=== PATIENT | male | born 1970 | race Hispanic/Latino ===

== ENCOUNTER 2017-06-20 16:37 | Emergency (ER) | payer SELFPAY ==
[~2017-06-20] VITALS: Ht 162.6 cm; Wt 68.0 kg
[~2017-06-20 16:37] MED LIST: CIPRO500 MG OR; CIPROFLOXACN500 MG PO; LORTAB 10 OR; LORTAB 1010 MG PO; LORTAB 5 OR; LORTAB 5/3255 MG PO; LORTAB5 OR; LORTAB5 PO; METFORMIN500 MG PO; NO HOME MEDS; ULTRAM50 M1 PO; ZOFRAN ODT4 MG PO
[2017-06-20] MEDS ORDERED: METFORMIN500 M2 PO (16:49)
[2017-06-20] MEDS ORDERED: MOTRIN400 MG PO (18:58)
[2017-06-20 19:10] VITALS: BP 129/74
== END 2017-06-20 19:10 | disposition home or self-care (01) | DRG 556 ==
LOC: ED 16:37
PROC: 2W39X1Z Immobilization of Left Upper Extremity using Splint (ICD-10-PCS; principal; 2017-06-20)
DX: M25.522 Pain in left elbow (principal); E11.9 Type 2 diabetes mellitus without complications; I10 Essential (primary) hypertension; W11.XXXA Fall on and from ladder, initial encounter; Y92.009 Unspecified place in unspecified non-institutional (private) residence as the place of occurrence of the external cause

== ENCOUNTER 2018-10-04 13:43 | Emergency (ER) | payer OTHER ==
[~2018-10-04] VITALS: Ht 162.6 cm; Wt 90.0 kg
[~2018-10-04 13:43] MED LIST changes: +METFORMIN500 M2 PO; +MOTRIN400 MG PO
[2018-10-04] MEDS ORDERED: GENTAMICIN0.3 % OS (14:26)
[2018-10-04 14:40] VITALS: BP 112/64
== END 2018-10-04 14:40 | disposition home or self-care (01) | DRG 125 ==
LOC: ED 13:43
DX: S05.12XA Contusion of eyeball and orbital tissues, left eye, initial encounter (principal); E11.9 Type 2 diabetes mellitus without complications; X58.XXXA Exposure to other specified factors, initial encounter; Y93.89 Activity, other specified; Y92.73 Farm field as the place of occurrence of the external cause; Y99.0 Civilian activity done for income or pay

== ENCOUNTER 2019-06-18 19:13 | Emergency (ER) | payer SELFPAY ==
[~2019-06-18] VITALS: Ht 152.4 cm; Wt 72.0 kg
[~2019-06-18 19:13] MED LIST changes: +GENTAMICIN0.3 % OS
[2019-06-18] MEDS ORDERED: INSULIN 70/30 (19:37)
[2019-06-18] MEDS ORDERED: CODEINE/GUAIFEN1 SOL PO (22:43)
[2019-06-18 23:00] VITALS: BP 118/68
== END 2019-06-18 23:00 | disposition home or self-care (01) | DRG 153 ==
LOC: ED 19:13
DX: J06.9 Acute upper respiratory infection, unspecified (principal)

== ENCOUNTER 2019-11-28 | Emergency (ER) | payer SELFPAY ==
[~2019-11-28] MED LIST changes: +CODEINE/GUAIFEN1 SOL PO; +INSULIN 70/30
[2019-11-28 16:59] LABS: URINE BILIRUBIN - DIPSTICK NEGATIVE (NEGATIVE); URINE BLOOD DIPSTICK NEGATIVE (NEGATIVE); URINE COLOR YELLOW; URINE GLUCOSE - DIPSTICK >=1000 mg/dL (NEGATIVE); URINE KETONE NEGATIVE (NEGATIVE); URINE LEUK ESTERASE NEGATIVE (NEGATIVE); URINE NITRITE - DIPSTICK NEGATIVE (Negative); URINE PROTEIN - DIPSTICK NEGATIVE (NEG-TRACE); URINE UROBILINOGEN - DIPSTICK 0.2 E.U./dL (0.2)
[2019-11-28 17:31] LABS: HEMATOCRIT 39.7 % (39.0-50.0); HEMOGLOBIN 13.8 g/dl (14.0-18.0); IMMATURE GRANULOCYTES 0.2 % (0.0-5.0); MEAN CELL VOLUME 91.1 fL CALC (80.0-100.0); MEAN CORPUSCULAR HGB 31.7 pG CALC (26.0-32.0); MEAN CORPUSCULAR HGB CONC 34.8 g/dL CAL (32.0-36.0); NEUT# 3.54 thou/uL (1.82-7.42); RED BLOOD COUNT 4.36 mill/uL (4.70-6.10); RED CELL DISTRI WIDTH 12.4 % (11.5-15.5)
[2019-11-28 17:49] LABS: ALBUMIN 3.9 g/dL (3.2-5.0); ALKALINE PHOSPHATASE 165 u/l (38-126); ANION GAP 13 (6-22 (CALC)); BILIRUBIN, TOTAL 0.4 mg/dL (0.0-1.4); BUN 14 mg/dL (9-20); BUN/CREATININE RATIO 27 (12-20 (CALC)); CARBON DIOXIDE 22 mmol/l (22-30); CHLORIDE 101 mmol/l (95-108); CREATININE 0.5 mg/dL (0.7-1.3); GFR > 60 ML/MIN (>=60 (CALC)); GFR FOR AFR.AMER. > 60 ML/MIN (>=60 (CALC)); SGOT/AST 27 u/l (17-59); TOTAL PROTEIN 6.7 g/dL (6.3-8.2)
[2019-11-28 17:54] LABS: SODIUM 132 mmol/l (137-146)
[2019-11-28] MEDS ORDERED: BACTRIM DS1 TAB PO (19:50)
== END 2019-11-28 20:15 | disposition home or self-care (01) | DRG 728 ==
DX: N45.1 Epididymitis (principal); E11.9 Type 2 diabetes mellitus without complications; Z79.4 Long term (current) use of insulin
CPT/HCPCS: Q9967

== ENCOUNTER 2022-08-17 06:09 | Emergency (ER) | payer SELFPAY ==
[~2022-08-17] VITALS: Ht 152.4 cm; Wt 73.0 kg
[2022-08-17] VITALS (17 sets, daily range): BP systolic 119–152; BP diastolic 68–97
[~2022-08-17 06:09] MED LIST changes: +BACTRIM DS1 TAB PO
[2022-08-17 06:32] LABS: BASO% 0.1 % (0-3); EOS% 2.1 % (0-8); HEMATOCRIT 45.8 % (39.0-50.0); HEMOGLOBIN 15.5 g/dl (14.0-18.0); IMMATURE GRANULOCYTES 0.1 % (0.0-5.0); LYMPH% 42.5 % (15-41); MEAN CELL VOLUME 93.3 fL CALC (80.0-100.0); MEAN CORPUSCULAR HGB 31.6 pG CALC (26.0-32.0); MEAN CORPUSCULAR HGB CONC 33.8 g/dL CAL (32.0-36.0); MONO% 9.8 % (2-13); NEUT# 3.46 thou/uL (1.82-7.42); NEUT% 45.4 % (42-76); RED BLOOD COUNT 4.91 mill/uL (4.70-6.10); RED CELL DISTRI WIDTH 12.1 % (11.5-15.5)
[2022-08-17 06:50] LABS: ALKALINE PHOSPHATASE 179 u/l (38-126); BILIRUBIN, TOTAL 0.4 mg/dL (0.0-1.4); BUN 16 mg/dL (9-20); BUN/CREATININE RATIO 22 (12-20 (CALC)); CHLORIDE 98 mmol/l (95-108); CREATININE 0.7 mg/dL (0.7-1.3); GFR FOR AFR.AMER. > 60 ML/MIN (>=60 (CALC)); GFR OTHER RACES > 60 ML/MIN (>=60 (CALC)); POTASSIUM 3.4 mmol/l (3.5-5.1); SGOT/AST 36 u/l (17-59); SODIUM 136 mmol/l (137-146)
[2022-08-17 06:51] LABS: ALBUMIN 4.8 g/dL (3.2-5.0); ANION GAP 13 (6-22 (CALC)); CARBON DIOXIDE 28 mmol/l (22-30)
[2022-08-17 06:57] LABS: ACT PARTIAL THROMBO TIME 24.8 SECONDS (20.0-32.5); PROTHROMBIN TIME 9.5 SECONDS (9.0-12.5)
[2022-08-17 07:00] LABS: D-DIMER 0.24 mg/L (0.19-0.60)
[2022-08-17 07:23] LABS: URINE BILIRUBIN - DIPSTICK NEGATIVE (NEGATIVE); URINE BLOOD DIPSTICK NEGATIVE (NEGATIVE); URINE COLOR YELLOW; URINE GLUCOSE - DIPSTICK 250 mg/dL (NEGATIVE); URINE KETONE NEGATIVE (NEGATIVE); URINE LEUK ESTERASE NEGATIVE (NEGATIVE); URINE PH 5.5 (4.5-8.0); URINE PROTEIN - DIPSTICK NEGATIVE (NEG-TRACE); URINE UROBILINOGEN - DIPSTICK 0.2 E.U./dL (0.2)
[2022-08-17 07:24] LABS: URINE NITRITE - DIPSTICK NEGATIVE (Negative)
== END 2022-08-17 10:16 | disposition home or self-care (01) | DRG 313 ==
LOC: ED 06:09
PROVIDERS: Family Medicine
DX: R07.9 Chest pain, unspecified (principal); E11.9 Type 2 diabetes mellitus without complications